=== PATIENT | female | born 1945 | race Caucasian/White ===

== ENCOUNTER 2017-04-14 10:10 | Outpatient (CLI) | payer MEDICARE, BC | END 2017-04-14 10:11 | disposition home or self-care (01) | LOC: BICMAMMO 10:10 | PROVIDERS: ATTEND Internal Medicine Hematology & Oncology | DX: Z85.3 Personal history of malignant neoplasm of breast (principal); R92.1 Mammographic calcification found on diagnostic imaging of breast; Z98.890 Other specified postprocedural states | CPT/HCPCS: 77066; G0279 ==

== ENCOUNTER 2017-08-13 23:06 | Inpatient (IN) | payer MEDICARE, BC ==
--- NOTE | 2017-08-13 23:42 | RAD ---
SINGLE VIEW OF THE CHEST: Comparison: 06-25-15 History: Chest pain. FINDINGS: Single view of the chest shows a normal sized cardiomediastinal silhouette. The pacemaker is unchange d in position. There is no evidence of consolidation, mass, or pleural effusions. IMPRESSION: No evidence of acute cardiopulmonary disease. POS: [facility]
--- NOTE | 2017-08-14 | CT ---
CT BRAIN WITHOUT CONTRAST: Comparison: None. History: Passed out in the shower. Syncope. Unable to follow commands. Technique: Multiple contiguous axial images were obtained in a CT of the brain without contrast. FINDINGS: There are post-surgical changes in the right calvarium. There is a small amount of increased density just beneath the post-operative site. This likely represents post-surgical change but a small amount of blood in this location cannot be entirely excluded. There is encephalomalacia in the temporal lobe on the right. No intraventricular hemorrhage or hydrocephalus are seen. The paranasal sinuses and mastoid air cells are well aerated. IMPRESSION: 1. Small hyperdensity along the patient's operative site likely representing post-surgical change. A small amount of hemorrhage in this location cannot be entirely excluded if the patient sustained a di rect trauma to this location. Correlate with history. POS: CASE
[2017-08-14 01:01] LABS: #Lymphocytes 0.2 thou/uL (1.20-3.40); #Monocytes 0.1 thou/uL (0.11-0.59); #Neutrophils 6.6 thou/uL (1.40-6.50); %Basophils 0.5 % (0.0-1.0); %Eosinophils 0.6 % (0.0-10.0); %Lymphocytes 3.4 % (21.0-51.0); %Monocytes 1.9 % (0.0-10.0); %Neutrophils 93.7 % (42.0-75.0); Hemoglobin 13.6 g/dL (12.0-16.0); Mean Corpuscular HGB CONC 34.9 g/dL (32.0-36.0); Mean Corpuscular Hemoglobin 32.6 pg (27.0-31.0); Mean Corpuscular Volume 93.4 fL (78.0-98.0); Mean Platelet Volume 6.8 fL (7.4-10.4); Platelet Count 157 thou/uL (130-400); RBC Distribution Width 10.8 % (11.5-14.5); Red Blood Cell (RBC) Count 4.17 mill/uL (4.20-5.40)
[2017-08-14 01:07] LABS: ALT (SGPT) 21 U/L (8-55); AST (SGOT) 19 U/L (5-34); Alkaline Phosphatase 91 U/L (40-150); Anion Gap 15 mmol/L (10-20); BUN (Urea Nitrogen) 18 mg/dL (9.8-20.1); Bilirubin, Total 1.3 mg/dL (0.2-1.2); CK (CPK) 41 U/L (29-168); Calc. Creatinine Clearance 0 mL/min (70-130); Carbon Dioxide 24 mmol/L (23-31); Chloride 100 mmol/L (98-107); Estimated GFR-MDRD 73; Globulin 2.6 g/dL (2.4-3.5); Glucose 121 mg/dL (80-115); Lipase 46 U/L (8-78); Magnesium 1.7 mg/dL (1.6-2.6); Potassium 4.6 mmol/L (3.5-5.1); Protein, Total 6.6 g/dL (6.0-8.3); Sodium 134 mmol/L (136-145)
[2017-08-14 01:11] LABS: CKMB 0.6 ng/mL (0-6.6); Troponin I Less than 0.010 ng/mL (< 0.028)
[2017-08-14] MEDS ORDERED: Piperacillin/Tazobactam 4.5 GM VIAL ONE (02:02)
[2017-08-14] MEDS ORDERED: Acetaminophen 325 MG TAB ONE (02:39)
[2017-08-14 03:28] LABS: Bilirubin Negative (Negative); Blood, Urine Negative (Negative); Clarity CLEAR (Clear); Glucose, Urine (Dipstick) Negative (Negative); Leukocyte Negative (Negative); Nitrite Negative (Negative); Protein, Urine (Dipstick) Trace mg/dL (Neg-Trace); Specific Gravity, Urine 1.027 (1.002-1.036)
[2017-08-14] MEDS ORDERED: Enoxaparin Sodium 80 MG/0.8 ML SYRINGE ONE (03:34)
[2017-08-14] MEDS ORDERED: Ondansetron HCl/PF 4 MG/2 ML Vial IVP PRN (04:49)
[2017-08-14] MEDS ORDERED: Ondansetron ODT 4 MG TAB SL PRN (04:49)
[2017-08-14 05:46] VITALS: BMI 32.8
[2017-08-14] MEDS: Sodium Chloride 0.9% 1,000 ML IV SCH ×2 (05:57→13:00)
--- NOTE | 2017-08-14 06:21 | HP ---
CODE STATUS: This patient is full code. PRIMARY CARE PHYSICIAN: Dr. Dacosta, Purchasing Engineer Dr Varghese. TIME OF EVALUATION: 2:00 a.m. CHIEF COMPLAINT: Syncope. HISTORY OF PRESENT ILLNESS: This is a 71-year-old female patient with past medical history of breast cancer that has been in remission for 5 years, also the patient had lymph node transplant past weeks at [facility] to improve circulation of the left upper extremity. The patient came to the hospital after having an episode of syncope, as per . change in pt's conditoin was sudden, She fell but he caught her and put her on the floor and called 911. The patient was disoriented, she was alert, there were no clear triggers, no alleviating factors,symptoms were reported as severe. As note the patient has a history of CHF and also has a pacemaker. REVIEW OF SYSTEMS: CONSTITUTIONAL: The patient had no episodes of fever, no chills,pt reported generalized weakness. RESPIRATORY: No cough, no sputum production or shortness of breath. CARDIOVASCULAR: No chest pain, palpitations, shortness of breath. Syncope GASTROINTESTINAL: No nausea, no vomiting, diarrhea or abdominal pain. HUMAN RESOURCES DISTRICT MANAGER: No dizziness, headache or feeling lightheaded. GENITOURINARY: No burning on urination. EXTREMITIES: No leg swelling. All other systems were reviewed and were negative except for the findings mentioned above. PAST MEDICAL HISTORY: Lymphedema, breast cancer, CHF. PAST SURGICAL HISTORY: Lymph node transplant 07/28/2017, pacemaker surgery, hysterectomy. PSYCHIATRIC HISTORY: No previous psychiatric history. SOCIAL HISTORY: No alcohol, no drugs. No smoking history. FAMILY HISTORY: The patient had no significant family history. ALLERGIES: No known drug allergies. MEDICATIONS: Oxycodone, carvedilol, spironolactone, losartan, benzoate, Nexium , atorvastatin, and Dymista. PHYSICAL EXAMINATION: VITAL SIGNS: On presentation, blood pressure 120/74 with heart rate 97, respiratory rate was 18, temperature 100, saturation 94. GENERAL: The patient is alert, oriented, no acute distress. HEENT: Normocephalic, conjunctivae. Moist oral mucosa. NECK: No JVD. RESPIRATORY: Bilateral air entry. No rales, no wheezing. Symmetric expansion. CARDIOVASCULAR: Normal rate, regular rhythm, no murmurs, no gallop. No edema. ABDOMEN: Soft, normal bowel sounds. MUSCULOSKELETAL: Baseline range of motion and strength. No tenderness. SKIN: Warm and intact. No pallor, no rash or redness. NEUROLOGIC: Baseline sensory. No evidence of any new focal weakness, vision or speech. Her sensory intact. PSYCHIATRIC: The patient is in a good mood, alert and oriented. Normal judgment. LABORATORY DATA: Reviewed. White count 7, hemoglobin 13, MCV 933, platelet count 157. D-dimer 2.97. Sodium 134, potassium 4.6, chloride 100, carbon dioxide 24, anion gap 15, BUN 18, creatinine 0.78, GFR 73, glucose 121. Lactic acid 1.3, calcium 10, magnesium 1.7, total bilirubin 1.3, AST 21. The rest of LFTs are normal. Troponin is negative. Prolactin 4.23. Urine was negative. IMAGING: Brain CT was done. There is a small hyperdensity along the patient's operative site, likely representing post-surgical changes. Small amount of hemorrhage in this location cannot be entirely excluded. If the patient sustained a direct trauma, no dislocation, correlate history. Chest x-ray: No evidence of any acute cardiopulmonary disease. EKG was reviewed. The patient has a normal sinus rhythm at a rate of 95, no ectopics. Anterior infarct, age undetermined. No specific acute ischemic changes. ASSESSMENT AND PLAN: The patient will be placed in the hospital for the following medical problems. 1. Systemic inflammatory response syndrome. The patient had some fevers and tachycardia, no clear etiology at this point. Could be related to recent surgery, will monitor, culture has been sent. 2. Elevated D-dimer. The patient presented with episodes of syncope, has positive D-Dimer, history of cancer, we will need to rule out pulmonary embolism, patient has no venous access and therefore might need a PICC line or central line during hospitalization, we have been unable to do ctpa for that reason . Lovenox has been given, given the risk for pulmonary embolism. VQ scan is pending for further result. 3. Syncope, unclear etiology, we will do echo and carotid Doppler for further syncope workup, we will place on tele. 4. Deep venous thrombosis prophylaxis. 5. History of pacemaker/AICD, might need interrogation given the episode of syncope. 6. Controlled hypertension, this is chronic. Reconcile home medications. We will not treat aggressively due to history of above hypotension during the episode. MTDD
[2017-08-14] MEDS ORDERED: Carvedilol 25 MG TAB PO SCH (09:00)
[2017-08-14] MEDS: Acetaminophen 325 MG TAB PO PRN ×2 (09:31→13:01)
--- NOTE | 2017-08-14 10:09 | ULT ---
CAROTID ULTRASOUND WITH BURTON SCALE AND DOPPLER DUPLEX COLOR FLOW IMAGING SPECTRAL ANALYSIS PERFORMED: CLINICAL INDICATION: Syncope. FINDINGS: There is scattered mild to moderate atherosclerotic calcification of the carotid arteries bilaterally . PEAK SYSTOLIC VELOCITY (CM/S): Right CCA 92 Left CCA 88 Right ICA 107 Left ICA 106 There is antegrade flow within the right vertebral artery. There is indeterminate flow within the le ft vertebral artery. There is limited evaluation due to the patient's inability to tolerate a stable position for the imag ing portio of the exam. IMPRESSION: 1. No hemodynamically significant stenosis of the right internal carotid artery. 2. No hemodynamically significant stenosis of the left internal carotid artery. POS: CASE
[2017-08-14] MEDS: Spironolactone 25 MG TAB PO SCH (10:25)
[2017-08-14] MEDS: B6 PO SCH (10:31)
[2017-08-14] MEDS: ALGAL OIL PO SCH (10:31)
[2017-08-14] MEDS: LEVOMEFOLATE PO SCH (10:31)
[2017-08-14] MEDS: B12 PO SCH (10:31)
[2017-08-14] MEDS ORDERED: oxyCODONE 5 MG TAB PO PRN (11:02)
--- NOTE | 2017-08-14 12:12 | NM ---
NUCLEAR MEDICINE VENTILATION AND PERFUSION EVALUATION: INDICATIONS: Concern for possible pulmonary embolus. COMPARISON: CT chest, abdomen, and pelvis dated 02/15/2016. Chest radiograph dated 08/13/2017 at 10:49 p.m. RADIOPHARMACEUTICAL: Xenon-133 inhaled 19.5 millicuries. Technetium 99m MAA 6.2 millicuries IV. FINDINGS: On the ventilatory examination, there is symmetric distribution of the radiotracer with some mild ret ention on the wash-out phases. The perfusion examination demonstrates no large pleural-based defect. There is a photopenic defect overlying the left upper lobe, corresponding to the patient's left dustin st wall AICD. IMPRESSION: 1. Low probability ventilation and perfusion for pulmonary embolus. 2. Mild retention of radiotracer on the ventilatory examination may reflect mild amounts of chronic obstructive pulmonary disease change. POS: [facility]
[2017-08-14] MEDS ORDERED: Pregabalin 25 MG CAP PO SCH (21:00)
[2017-08-14] MEDS: Losartan 25 MG TAB PO SCH (21:57)
[2017-08-14] MEDS: Atorvastatin Calcium 20 MG TAB PO SCH (21:57)
[2017-08-15 05:10] LABS: #Eosinphils 0.1 thou/uL (0.0-0.7); #Lymphocytes 0.4 thou/uL (1.20-3.40); #Monocytes 0.3 thou/uL (0.11-0.59); #Neutrophils 2.5 thou/uL (1.40-6.50); %Basophils 0.4 % (0.0-1.0); %Eosinophils 1.8 % (0.0-10.0); %Lymphocytes 13.5 % (21.0-51.0); %Monocytes 8.5 % (0.0-10.0); %Neutrophils 75.9 % (42.0-75.0); Hemoglobin 10.8 g/dL (12.0-16.0); Mean Corpuscular HGB CONC 33.4 g/dL (32.0-36.0); Mean Corpuscular Hemoglobin 31.2 pg (27.0-31.0); Mean Corpuscular Volume 93.5 fL (78.0-98.0); Mean Platelet Volume 7.3 fL (7.4-10.4); Platelet Count 143 thou/uL (130-400); Red Blood Cell (RBC) Count 3.47 mill/uL (4.20-5.40); White Blood Cell (WBC) Count 3.3 thou/uL (4.8-10.8)
[2017-08-15 05:30] LABS: Anion Gap 9 mmol/L (10-20); BUN (Urea Nitrogen) 12 mg/dL (9.8-20.1); Calc. Creatinine Clearance 103 mL/min (70-130); Calcium 8.8 mg/dL (7.8-10.44); Carbon Dioxide 25 mmol/L (23-31); Chloride 107 mmol/L (98-107); Estimated GFR-MDRD Greater than 90; Glucose 94 mg/dL (80-115); Potassium 3.5 mmol/L (3.5-5.1); Sodium 137 mmol/L (136-145)
--- NOTE | 2017-08-15 07:21 | PDOC.EVN ---
Event Note - Event Note Event Note: late entry for 08/14/2017 pt seen & examined h&p reviewed pt no new c/o no further episodes of syncope d/w patient that she had used her prn lasix for 3 days in a row just recently due to 20lb wt gain post op in addition to new narcotic rx post op as well post IVF, SBP significantly improved pt will be cutting down on oxycontin as well d/w pt and family that combination of the two above is suspected etiology of ssx check orthostatic vs, d/c IVF, close monitoring, if neg t/c d/c no obvious foci of infxn, suspect fever is in the post-op period, and hypotension the cause of syncope and driven by medications as above
[2017-08-15] MEDS: B12 PO SCH (08:56)
[2017-08-15] MEDS: ALGAL OIL PO SCH (08:56)
[2017-08-15] MEDS: B6 PO SCH (08:56)
[2017-08-15] MEDS: LEVOMEFOLATE PO SCH (08:56)
[2017-08-15] MEDS: Spironolactone 25 MG TAB PO SCH (08:58)
[2017-08-15] MEDS: Metamucil PACK PO SCH (08:59)
--- NOTE | 2017-08-15 11:54 | PDOC.PN ---
- Subjective Encounter Start Date: 08/15/17 Encounter Start Time: 10:00 Subjective: no c/o sob or dizziness -: feels better -: is sitting in chair - Objective MAR Reviewed: Yes Vital Signs & Weight: Vital Signs (12 hours) Temp Pulse Resp BP BP BP Pulse Ox 08/15/17 11:34 99.3 F 73 16 104/42 L 93 L 08/15/17 07:30 99.3 F 79 20 96 08/15/17 03:14 99.3 F 79 20 87/48 L 76/43 L 109/54 L 94 L Weight Weight 173 lb 12.8 oz I&O: 08/14/17 08/15/17 08/16/17 06:59 06:59 06:59 Intake Total 480 300 Output Total 50 10 Balance 430 290 Result Diagrams: 08/15/17 04:47 08/15/17 04:47 Phys Exam - Physical Examination HEENT: PERRLA, moist MMs Neck: no JVD, supple Respiratory: no wheezing, no rales Cardiovascular: RRR, no significant murmur Gastrointestinal: soft, non-tender, positive bowel sounds Musculoskeletal: no edema, pulses present Neurological: non-focal, moves all 4 limbs Psychiatric: normal affect, A&O x 3 Dx/Plan (1) Syncope Code(s): R55 - SYNCOPE AND COLLAPSE Status: Acute (2) Orthostatic hypotension Code(s): I95.1 - ORTHOSTATIC HYPOTENSION Status: Acute (3) HTN (hypertension) Code(s): I10 - ESSENTIAL (PRIMARY) HYPERTENSION Status: Chronic Qualifiers: Hypertension type: essential hypertension Qualified Code(s): I10 - Essential (primary) hypertension (4) CAD (coronary artery disease) Code(s): I25.10 - ATHSCL HEART DISEASE OF [place] CORONARY ARTERY W/O ANG PCTRS Status: Chronic Qualifiers: Coronary Disease-Associated Artery/Lesion type: [place] artery [place] vs. transplanted heart: [place] heart Associated angina: without angina Qualified Code(s): I25.10 - Atherosclerotic heart disease of [place] coronary artery without angina pectoris (5) H/O malignant neoplasm of breast Code(s): Z85.3 - PERSONAL HISTORY OF MALIGNANT NEOPLASM OF BREAST Status: Chronic Comment: prior h/o right mastectomy with lymphedema (6) recent lymph node transplant Status: Acute Comment: has lymph node transplanted from left groin area to right axilla in july at [facility]. Still has a pinrose drain in left groin (7) Pacemaker Code(s): Z95.0 - PRESENCE OF CARDIAC PACEMAKER Status: Chronic (8) Chronic anemia Code(s): D64.9 - ANEMIA, UNSPECIFIED Status: Chronic (9) Dyslipidemia Code(s): E78.5 - HYPERLIPIDEMIA, UNSPECIFIED Status: Chronic - Plan await echo results -: 1 liter iv fluid @100mls/hr if not given yet -: prelim blood cs are -ve -: coreg, cozaar, spironolactone are all held, sbp was in the 80's last evenin -: to ambulate as tolerated with assistance initially then on her own * . likely dc later this evening or am if stable and echo is normal. Needs to start antihypertensives in a graded fashion if sbp >110. Review of Systems - Medications/Allergies Allergies/Adverse Reactions: Allergies Allergy/AdvReac Type Severity Reaction Status Date / Time tramadol Allergy Verified 08/14/17 05:37 Medications: Current Medications Atorvastatin Calcium (Lipitor) 20 mg PO HS HOWARD Last Admin: 08/14/17 21:57 Dose: 20 mg Losartan Potassium (Cozaar) 25 mg PO HS HOWARD Last Admin: 08/14/17 21:57 Dose: 25 mg Oxycodone HCl (Oxycodone Ir) 5 mg PO QIDPRN PRN PRN Reason: Pain Last Admin: 08/14/17 13:01 Dose: 5 mg Pantoprazole Sodium (Protonix) 40 mg PO DAILY HOWARD Last Admin: 08/15/17 08:59 Dose: 40 mg Levomefolate/B6/B12/ (Algal Oil [Metanx]) 0 each PO DAILY HOWARD Last Admin: 08/15/17 08:56 Dose: Not Given Psyllium Hydrophilic Mucilloid (Metamucil) 1 pk PO DAILY HOWARD Last Admin: 08/15/17 08:59 Dose: 1 pk Spironolactone (Aldactone) 25 mg PO QAM-WM HOWARD Last Admin: 08/15/17 08:58 Dose: 25 mg
[2017-08-15] MEDS: Acetaminophen 325 MG TAB PO PRN (15:49)
--- NOTE | 2017-08-15 20:50 | CON ---
DATE OF CONSULTATION: 08/15/2017 PRIMARY MAINTENANCE SHOP WELDER: Ryan Varghese. REASON FOR CONSULTATION: Syncope and pericardial effusion. HISTORY OF PRESENT ILLNESS: Ms. Souza is a very pleasant 71-year-old white female, who comes to [facility] for a syncopal spell. She was at home, took a shower, was sitting on a chair in her bath room and stood up, did not feel well. Eventually, she did not really pass out. She just fell like s he was close to passing out. She did not lose consciousness completely. She remembers the whole epi sode, but she was able be caught and placed on the floor. 911 was called. She was disoriented, but awake and was brought in for further evaluation. Here, she was found to be orthostatic with a blood pressure going from 109/54 down to 76/43 from supine to standing. She tells me her blood pressure is always borderline low, and she does have a prescription for p.r.n. Lasix, which she only uses when she needs to and she does not remember how much she is used it recently. She also has a history of b reast cancer and has lymphedema of the right arm and has recently had a lymph node transplant on the 28 of July of this year, this was 2-1/2 weeks ago. She has been on pain medication since which she takes one every evening. PAST MEDICAL HISTORY: 1. Lymphedema. 2. Breast cancer in remission since 2012. 3. History of diastolic heart failure. 4. History of supraventricular tachycardia, status post ablation and subsequently pacemaker insertio n. PAST SURGICAL HISTORY: 1. Lymph node transplant just 2-1/2 weeks ago. 2. Pacemaker insertion. 3. Hysterectomy. SOCIAL HISTORY: No alcohol, tobacco or drugs. FAMILY HISTORY: Noncontributory. ALLERGIES: No known drug allergies. OUTPATIENT MEDICATIONS: Include, 1. Oxycodone 5 mg p.o. 4 times a day p.r.n. 2. Nexium 10 mg a day. 3. Carvedilol 25 mg b.i.d. 4. Atorvastatin 20 mg at bedtime. 5. Aldactone 25 mg a day. 6. Losartan 25 mg daily. ALLERGIES: TRAMADOL. REVIEW OF SYSTEMS: A 12-point review of systems was done and is all negative unless stated in the hi story of present illness. PHYSICAL EXAMINATION: VITAL SIGNS: Temperature 98.1, pulse 78, respiration rate 16, satting 96% on room air, blood pressur e 119/65. GENERAL: Awake, alert, oriented x3, in no distress. HEENT: Normocephalic, atraumatic. NECK: Supple. LUNGS: Clear to auscultation. CARDIOVASCULAR: S1, S2. Heart sounds are somewhat distant. ABDOMEN: Soft, positive bowel sounds. EXTREMITIES: Trace edema bilaterally. SKIN: Warm and dry. LABORATORY WORK: Reviewed. UA was normal. CBC with a white count of 7.0, hemoglobin was 13 on admi ssion down to 10.8 after IV fluids. Platelets were normal. Coags: D-dimer was a little high. Chem istry was unremarkable except for low sodium, which is normal now at 137, normal potassium, normal BU N and creatinine. GFR greater than 90. Total bilirubin was 1.3. AST, ALT, alkaline phosphatase wer e all normal. Troponin negative x1. Prolactin level is 4.2. Echocardiogram was reviewed. She has normal LV function. Septal bounce consistent with paced morpho logy. Her EF is normal at about 60% to 65%. There is some LVH, mild MR, mild TR. There is a small pericardial effusion. There is some variation of the pressures with respirations suggestive of early AND PLAN: tamponade, I am not sure this is accurate given the variability from beat to beat which i s not expected with tamponade is more with respiration. ASSESSMENT AND PLAN: 1. Syncope presyncope: Most likely related to orthostatic hypotension. She has responded very well to IV fluids and and I would probably give her more fluids overnight and make sure she is very well tacked up. As far as her pericardial effusion, this is a new finding. I do not think clinically she is in tamponade at this point. On my evaluation, she is pretty much asymptomatic and her blood pres sure is at her normal baseline. I would observe her overnight for this pericardial effusion make francesca e that her clinical picture is not getting any worse. If she becomes hypotensive with immediately tr eat her with fluids and may need to have her effusion evacuated. However, at this point I think this may have been accumulating in 2-3 weeks since her and may be related to her lymphnode transplant. 2. Pericardial effusion: s above. Thank you for letting us participate in the care of your patient. Dr. Varghese, her primary Cardiol ogy will follow up in the morning.
[2017-08-15] MEDS: Atorvastatin Calcium 20 MG TAB PO SCH (22:06)
[2017-08-15] MEDS: Losartan 25 MG TAB PO SCH (22:06)
[2017-08-16] MEDS: Acetaminophen 325 MG TAB PO PRN (00:15)
[2017-08-16] MEDS: Spironolactone 25 MG TAB PO SCH (08:53)
[2017-08-16] MEDS: B6 PO SCH (08:54)
[2017-08-16] MEDS: ALGAL OIL PO SCH (08:54)
[2017-08-16] MEDS: B12 PO SCH (08:54)
[2017-08-16] MEDS: LEVOMEFOLATE PO SCH (08:54)
[2017-08-16] MEDS: Metamucil PACK PO SCH (08:54)
[2017-08-16 11:26] VITALS: BP 135/64; TEMP 97.6
--- NOTE | 2017-08-16 14:26 | PDOC.CTH ---
Cardiology Progress Note - Subjective doing well. No complaints. BP, HR stable. Review of previous EKG in office in 2018 similar to current EKG - Objective Vital Signs Temp Pulse Resp BP Pulse Ox 08/16/17 11:26 97.6 F 76 16 135/64 94 L 08/16/17 08:00 97.7 F 77 16 95 08/16/17 07:56 97.7 F 77 16 101/53 L 95 08/16/17 03:35 97.8 F 74 20 126/57 L 96 Weight 173 lb 12.8 oz 08/15/17 08/16/17 08/17/17 06:59 06:59 06:59 Intake Total 480 900 Output Total 50 30 Balance 430 870 - Physical Examination General/Neuro: alert & oriented x3, NAD Neck: no JVD present Lungs: CTA, unlabored respirations Heart: RRR Abdomen: no HSM, NT/ND, soft Extremities: + femoral B - Labs Result Diagrams: 08/15/17 04:47 08/15/17 04:47 Troponin/CKMB CK-MB (CK-2) 0.6 ng/mL (0-6.6) 08/14/17 00:42 Troponin I Less than 0.010 ng/mL (< 0.028) 08/14/17 00:42 - Assessment/Plan 1. Syncope No driving for 6 months given recent episode Likely related to volume contraction. Pt taking increase in lasix and came in hypotensive. Review of echo with small pericardial effusion and did not appear hemodynamically significant. Ok from my standpoint to ri home with close outpatient fu 3 week event recorder fu echo in 1 week
--- NOTE | 2017-08-17 00:09 | DIS ---
DATE OF ADMISSION: 08/14/2017 DATE OF DISCHARGE: 08/16/2017 PRIMARY CARE PHYSICIAN: Dr. Armand Duran. DISCHARGE DIAGNOSES: 1. Syncope. 2. Orthostatic hypotension. 3. Pericardial effusion. CONDITION OF PATIENT ON THE DAY OF DISCHARGE: Stable. I assessed Ms. Souza on the day of dischar . She denies any chest pain or shortness of breath. Vital signs are stable. S1 and S2 are heard, regular. Lungs are clear to auscultation bilaterally. CONSULTATIONS DURING THIS HOSPITALIZATION: Cardiology, Dr. An. HOSPITAL COURSE: Ms. Souza is a pleasant 71-year-old lady who was admitted to [facility] on 08/14/2017, following a syncopal episode. Please refer Dr. Padilla's history and physical note dated 08/14/2017 for further details. She was found to have elevated D-dimer. V/Q sca n was of low probability for pulmonary embolism. She was seen by Cardiology Service. She was found to have orthostatic hypotension. She was also fou nd to be dehydrated and received intravenous fluids. A 2D echocardiogram showed normal left ventricu lar size and a left ventricular ejection fraction of 60%-65%. She also had normal right ventricular size and function. She did not have any recurrence of syncope. On the day of discharge, she was seen by Cardiology Service and cleared for discharge. DISCHARGE MEDICATIONS: No change was made to her preadmission home medications, which include Lipito r 20 mg at bedtime, Coreg 25 mg 2 times a day, esomeprazole 20 mg daily, Cozaar 25 mg daily, spironol actone 25 mg daily, and oxycodone 5 mg 4 times a day as needed. Many thanks for allowing me to participate in your patient's care. Please feel free to contact me wi th any questions or concerns. DISCHARGE DESTINATION: Home. TOTAL AMOUNT OF TIME SPENT COORDINATING THIS DISCHARGE: 25 minutes.
== END 2017-08-16 16:15 | disposition home or self-care (01) | DRG 312 ==
LOC: ERS 23:06 → 2SE 08-14 01:50
PROVIDERS: ADMIT Hospitalist; ATTEND Hospitalist
DX: I95.1 Orthostatic hypotension (principal); I31.3 Pericardial effusion (noninflammatory); I50.30 Unspecified diastolic (congestive) heart failure; I47.1 Supraventricular tachycardia; R65.10 Systemic inflammatory response syndrome (SIRS) of non-infectious origin without acute organ dysfunction; Z85.3 Personal history of malignant neoplasm of breast; I11.0 Hypertensive heart disease with heart failure; I25.10 Atherosclerotic heart disease of native coronary artery without angina pectoris; D64.9 Anemia, unspecified; E78.5 Hyperlipidemia, unspecified; Z95.810 Presence of automatic (implantable) cardiac defibrillator; B96.89 Other specified bacterial agents as the cause of diseases classified elsewhere
CPT/HCPCS: 36415; 70450; 71045; 78582; 80048; 80053; 81003; 82550; 82553; 83605; 83690; 83735; 84146; 84484; 85025; 85379; 87040; 87086; 93306; 93880; 96361; 96365; 96367; 96372; A9540; A9558; J1650; J2543; J3370

== ENCOUNTER 2018-04-03 10:22 | Outpatient (CLI) | payer MEDICARE, BC ==
--- NOTE | 2018-04-03 12:28 | ULT ---
LIMITED USL RIGHT AXILLARY REGION: 04/03/2018 HISTORY: Patient with history of right breast cancer, post lumpectomy. The patient now has pain in the right axillary region, after a right axillary lymph node transplant. FINDINGS: No definite solid or cystic lesion is seen in the right breast. There is no fluid or fluid collectio n identified. There is an area of slight heterogeneity in the left axillary region, which could pote ntially represent a small lymph node; however, this was not able to be reproduced on real-time imagin g. No other findings. IMPRESSION: 1. BI-RADS category 2-Benign findings. Annual mammographic screening is recommended. 2. No fluid or fluid collection is seen in the right axillary region. 3. The patient's focal area of pain should be further managed clinically. Follow-up imaging can be performed if warranted. POS: CASE
== END 2018-04-03 10:23 | disposition home or self-care (01) ==
LOC: BICMAMMO 10:22
PROVIDERS: ATTEND Internal Medicine Hematology & Oncology
DX: Z08 Encounter for follow-up examination after completed treatment for malignant neoplasm (principal); R92.1 Mammographic calcification found on diagnostic imaging of breast; N64.4 Mastodynia; Z85.3 Personal history of malignant neoplasm of breast
CPT/HCPCS: 76999; 77066; G0279

== ENCOUNTER 2018-09-12 15:56 | Outpatient (CLI) | payer MEDICARE, BC ==
--- NOTE | 2018-09-12 18:09 | SJPRAD ---
PA AND LATERAL VIEWS CHEST: Date: 09/12/18 HISTORY: Cough. FINDINGS: Comparison made with exam of 08/13/17. Left-sided AICD remains in place. The heart size is normal. The lungs are expanded without focal area s of consolidation, pneumothoraces, or pleural effusions. There are mild degenerative changes in the spine. IMPRESSION: No radiographic evidence of acute cardiopulmonary process. POS: [facility]
== END 2018-09-12 15:57 | disposition home or self-care (01) ==
LOC: MWLC RAD 15:56
PROVIDERS: ATTEND Family Medicine
DX: R05 Cough (principal)

== ENCOUNTER 2019-04-17 13:04 | Outpatient (CLI) | payer MEDICARE, BC ==
--- NOTE | 2019-04-17 14:15 | MMO ---
Bilateral MAMMO Bilat Screen DDI+CESAR. CLINICAL HISTORY: Patient is 73 years old and is seen for screening. The patient has no family history of breast cancer. The patient has a history of malignant (generic) in the right breast at age 66. The patient has a history of right Lumpectomy in April,, right Ultrasound Guided Core Biopsy in 2012 - malignant and bilateral Stereotatic Biopsy - benign. VIEWS: The views performed were: bilateral craniocaudal with tomosynthesis; bilateral mediolateral oblique with tomosynthesis; and left mediolateral oblique. FILMS COMPARED: The present examination has been compared to prior imaging studies performed at [facility] on 04/14/2017 and 04/03/2018, and at [facility][1] on 09/28/2015 and 04/25/2016. This study has been interpreted with the assistance of computer-aided detection. MAMMOGRAM FINDINGS: The breasts are heterogeneously dense, which could obscure a lesion on mammography. Benign calcifications are noted bilaterally. There are stable right sided post-operative changes. There are no suspicious masses, suspicious calcifications, or new areas of architectural distortion. IMPRESSION: THERE IS NO MAMMOGRAPHIC EVIDENCE OF MALIGNANCY. A ROUTINE FOLLOW-UP MAMMOGRAM IN 1 YEAR IS RECOMMENDED. THE RESULTS OF THIS EXAM WERE SENT TO THE PATIENT. ACR BI-RADS Category 2 - Benign finding MAMMOGRAPHY NOTE: 1. A negative mammogram report should not delay a biopsy if a dominant of clinically suspicious mass is present. 2. Approximately 10% to 15% of breast cancers are not detected by mammography. 3. Adenosis and dense breasts may obscure an underlying neoplasm. Reported by: ADAM MCINTOSH MD Electonically Signed: [id number]
== END 2019-04-17 13:05 | disposition home or self-care (01) ==
LOC: BICMAMMO 13:04
PROVIDERS: ATTEND Internal Medicine Hematology & Oncology
DX: Z12.31 Encounter for screening mammogram for malignant neoplasm of breast (principal); Z85.3 Personal history of malignant neoplasm of breast; Z98.890 Other specified postprocedural states; Z91.89 Other specified personal risk factors, not elsewhere classified
CPT/HCPCS: 77063; 77067

== ENCOUNTER 2020-01-07 11:32 | Outpatient (CLI) | payer MEDICARE, BC ==
--- NOTE | 2020-01-07 13:25 | RAD ---
LEFT HAND 3 VIEWS: HISTORY: Hand pain and swelling. FINDINGS: Carpals intact. Mild DJD at the 1st carpometacarpal. Mild narrowing of all the MCP joints with mild degenerative spurring at the 1st MCP joint. Prominent degenerative changes in the IP joints of all digits. Articular sclerosis and deformity wit h degenerative spurring prominent at the PIP joints of the 2nd and 3rd digits with angulation. Promi nent DJD at the IP joint of the thumb and all DIP joints. 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 POS: [facility]
== END 2020-01-07 11:33 | disposition home or self-care (01) ==
LOC: BICRAD 11:32
PROVIDERS: ATTEND Family Medicine
DX: M79.642 Pain in left hand (principal); M19.042 Primary osteoarthritis, left hand

== ENCOUNTER 2020-02-25 07:23 | Day surgery (SDC) | payer MEDICARE, BC ==
[2020-02-21 13:58] VITALS: BMI 31.1
[2020-02-25] MEDS ORDERED: PROPOFOL 200 MG/20 ML VIAL ONE (08:46)
[2020-02-25] MEDS ORDERED: Lidocaine 1% PF 5 ML VIAL ONE (08:46)
--- NOTE | 2020-02-25 10:33 | OP ---
DATE OF PROCEDURE: 02/25/2020 PROCEDURE PERFORMED: Colonoscopy with snare polypectomy. PREOPERATIVE DIAGNOSES: Hematochezia and history of colon polyps. DESCRIPTION OF PROCEDURE: Informed consent was obtained from the patient. She was sedated with total intravenous anesthesia. The rectal exam was performed and was normal. The colonoscope was advanced without difficulty to the cecum with the ileocecal valve and the appendiceal orifice were clearly identified. Preparation quality was good. I removed a 7 mm polyp from the cecum by snare cautery polypectomy. I removed a 6 mm polyp from the transverse colon by snare cautery polypectomy. There was [id number] diverticulosis in the sigmoid colon. The remainder of the colonic mucosa was normal. Retroflexed views in the rectum were unremarkable. IMPRESSION: 1. 7 mm cecum polyp removed by hot snare. 2. 6 mm transverse polyp removed by hot snare. 3. Sigmoid diverticulosis. RECOMMENDATIONS: 1. Await histopathology. 2. Repeat colonoscopy in 5 years. Job ID: [id number]
== END 2020-02-25 10:55 | disposition home or self-care (01) ==
LOC: SDC 07:23
PROVIDERS: ATTEND Internal Medicine Gastroenterology
PROC: 0DBH8ZZ Excision of Cecum, Via Natural or Artificial Opening Endoscopic (ICD-10-PCS; principal; 2020-02-25)
PROC: 0DBL8ZZ Excision of Transverse Colon, Via Natural or Artificial Opening Endoscopic (ICD-10-PCS; 2020-02-25)
DX: D12.0 Benign neoplasm of cecum (principal); D12.3 Benign neoplasm of transverse colon; K57.31 Diverticulosis of large intestine without perforation or abscess with bleeding; I11.0 Hypertensive heart disease with heart failure; Z79.899 Other long term (current) drug therapy; Z86.010 Personal history of colon polyps; Z88.5 Allergy status to narcotic agent
CPT/HCPCS: 88305; J2704

== ENCOUNTER 2020-04-20 09:44 | Outpatient (CLI) | payer MEDICARE, BC | END 2020-04-20 09:45 | disposition home or self-care (01) | LOC: BICMAMMO 09:44 | PROVIDERS: ATTEND Internal Medicine Hematology & Oncology | DX: Z12.31 Encounter for screening mammogram for malignant neoplasm of breast (principal); Z85.3 Personal history of malignant neoplasm of breast | CPT/HCPCS: 77063; 77067 ==

== ENCOUNTER 2020-08-04 15:16 | Outpatient (CLI) | payer MEDICARE, BC | END 2020-08-04 15:17 | disposition home or self-care (01) | LOC: BICCT 15:16 | PROVIDERS: ATTEND Allergy & Immunology | DX: J32.9 Chronic sinusitis, unspecified (principal) ==

== ENCOUNTER 2022-06-02 12:07 | Outpatient (CLI) | payer BC, MEDICARE | END 2022-06-02 12:08 | disposition home or self-care (01) | LOC: BICMAMMO 12:07 | PROVIDERS: ATTEND Internal Medicine Hematology & Oncology | DX: Z12.31 Encounter for screening mammogram for malignant neoplasm of breast (principal); Z85.3 Personal history of malignant neoplasm of breast; Z91.89 Other specified personal risk factors, not elsewhere classified; Z98.890 Other specified postprocedural states | CPT/HCPCS: 77063; 77067 ==

== ENCOUNTER 2022-11-08 13:02 | Outpatient (CLI) | payer MEDICARE | END 2022-11-08 13:03 | disposition home or self-care (01) | LOC: BICMAMMO 13:02 | PROVIDERS: ATTEND Family Medicine | DX: Z13.820 Encounter for screening for osteoporosis (principal); M85.89 Other specified disorders of bone density and structure, multiple sites; Z78.0 Asymptomatic menopausal state | CPT/HCPCS: 77080 ==